=== PATIENT | female | born 1965 | race Caucasian/White ===

== ENCOUNTER 2020-11-07 16:32 | Emergency (ER) | payer OTHER ==
--- NOTE | 2020-11-07 17:07 | EDM.PDOC ---
ED HPI GENERAL MEDICAL PROBLEM - General Chief Complaint: Upper Extremity Injury/Pain Stated Complaint: FELL/RIGHT WRIST Time Seen by Provider: 11/07/20 16:51 Source of Information: Reports: Patient, Family, RN Notes Reviewed History Limitations: Reports: No Limitations - History of Present Illness INITIAL COMMENTS - FREE TEXT/NARRATIVE: 55-year-old female presents emergency department today with complaint of right wrist pain and left shoulder pain, she injured herself earlier today when she missed the last step of her camper fell all outstretched hand hit the picnic table and then she landed predominantly on her left shoulder. She can lift her shoulder but she has pain with about 90 degrees abduction and she has full range of motion of the right wrist as well but she does have a slight deformity and it is quite painful, no loss of consciousness denies any other injuries - Related Data Allergies Allergy/AdvReac Type Severity Reaction Status Date / Time acetaminophen [From Percocet] AdvReac Nausea Verified 11/07/20 16:49 oxycodone [From Percocet] AdvReac Nausea Verified 11/07/20 16:49 Home Meds: Home Meds FLUoxetine HCl [Fluoxetine] 40 mg PO DAILY 11/07/20 [History] LORazepam [Ativan] 0.5 mg PO ASDIRECTED PRN 11/07/20 [History] Levothyroxine [Synthroid] 100 mcg PO ACBREAKFAST 11/07/20 [History] Omeprazole Magnesium [Prilosec Otc] 20 mg PO DAILY 11/07/20 [History] busPIRone [Buspar] 10 mg PO DAILY 11/07/20 [History] Past Medical History HEENT History: Reports: Impaired Vision Gastrointestinal History: Reports: GERD Genitourinary History: Reports: [employer]al [employer] History: Reports: Psychiatric History: Reports: Anxiety Endocrine/Metabolic History: Reports: Obesity/BMI 30+ - Infectious Disease History Infectious Disease History: Reports: Chicken Pox, Shingles - Past Surgical History Head Surgeries/Procedures: Reports: None HEENT Surgical History: Reports: None GI Surgical History: Reports: Cholecystectomy Female Surgical History: Reports: Hysterectomy Endocrine Surgical History: Reports: None Musculoskeletal Surgical History: Reports: Knee Replacement Dermatological Surgical History: Reports: None Social & Family History - Tobacco Use Tobacco Use Status *Q: Never Tobacco User Second Hand Smoke Exposure: No - Caffeine Use Caffeine Use: Reports: Coffee - Alcohol Use Days Per Week of Alcohol Use: 2 Number of Drinks Per Day: 1 Total Drinks Per Week: 2 - Recreational Drug Use Recreational Drug Use: No Review of Systems - Review of Systems Review Of Systems: See Below Musculoskeletal: Reports: Shoulder Pain, Joint Pain Neurological: Reports: No Symptoms ED EXAM, GENERAL - Physical Exam Exam: See Below Free Text/Narrative:: Examination the right wrist I do appreciate a deformity however she has limited range of motion of the wrist full range of motion all digits radial pulses +2 t here is tenderness to palpation on the lateral aspect of the wrist. No tenderness at the elbow no tenderness at the shoulder on the right side examination of the left shoulder I do not appreciate any tenderness to palpation I do not appreciate any deformity she has full range of motion however she does get painful at about 90 degrees abduction Exam Limited By: No Limitations General Appearance: Alert, WD/WN, No Apparent Distress ED TRAUMA EXTREMITY PROCEDURES - Splinting Right Upper Extremity Splint Site: Radius Pre-Procedure NV Status: Normal Post-Procedure NV Status: Normal Splint Material: Fiberglass Splint Design: Gutter Applied & Form Fitted By: Provider, Nurse Provider Post-Splint Application NV Check: NV Status Normal, Good Position Complications: No Course - Vital Signs Last Recorded V/S: Last Vital Signs Temp 97.6 F 11/07/20 16:52 Pulse 95 11/07/20 16:52 Resp 16 11/07/20 16:52 BP 154/82 H 11/07/20 16:52 Pulse Ox 96 11/07/20 16:52 - Orders/Labs/Meds Orders: Active Orders 24 hr Category Date Time Status Shoulder Comp Lt [CR] Stat Exams 11/07/20 17:04 Taken Departure - Departure Time of Disposition: 18:45 Disposition: Home, Self-Care 01 Condition: Fair Clinical Impression: Distal radius fracture, right Qualifiers: Encounter type: initial encounter Fracture type: closed Fracture morphology: other fracture Qualified Code(s): S52.591A - Other fractures of lower end of right radius, initial encounter for closed fracture - Discharge Information Instructions: Radial Fracture Referrals: PCP,None [Primary Care Provider] - Forms: ED Department Discharge Additional Instructions: Use Tylenol or Motrin as needed for pain control, please remain in the splint until reevaluated by orthopedics they should call you on Tuesday however if you have not heard from them please contact our office by 10:00 call or return to the emergency department worsening of symptoms Sepsis Event Note (ED) - Evaluation Sepsis Screening Result: No Definite Risk - Focused Exam Vital Signs: Vital Signs Temp Pulse Resp BP Pulse Ox 11/07/20 16:52 97.6 F 95 16 154/82 H 96 11/07/20 16:48 97.6 F 95 16 154/82 H 96 - My Orders Last 24 Hours: My Active Orders 11/07/20 17:04 Shoulder Comp Lt [CR] Stat - Assessment/Plan Last 24 Hours: My Active Orders 11/07/20 17:04 Shoulder Comp Lt [CR] Stat Plan: Assessment Acuity = acute Site and laterality = impacted distal radius fracture right closed Etiology = fall on outstretched hand Manifestations = none Location of injury = Home Lab values = x-ray describes a fracture above Plan Consultation with orthopedics next week she is placed in a gutter splint and sling Tylenol Motrin as needed for pain control This note was dictated using [employer] voice recognition software please call with any questions on syntax or grammar.
--- NOTE | 2020-11-07 18:37 | CRLCR ---
For Patients: As a result of the Cures Act, medical imaging exams and procedure reports are released immediately into your electronic medical record. You may view this report before your referring provider. If you have questions, please contact your health care provider. Indication: Fall, pain Comparison: None available. Technique: AP, Lateral, and Oblique views right wrist were obtained Findings: There is an impacted distal radial fracture without significant angulation. No other displaced injuries are appreciated. The joint spaces are grossly preserved. There is moderate carpal soft tissue swelling. Impression: Impacted distal radial fracture with associated soft tissue swelling. No evidence of significant angulation. Dictated by Negrito Sims MD @ 11/07/2020 6:35:[address] Negrito Sims @ Nov 07 2020 6:35PM
--- NOTE | 2020-11-10 09:11 | CR ---
Shoulder Comp Lt CLINICAL HISTORY: Fall, pain FINDINGS: There is no acute fracture or dislocation in the left shoulder. There are some degenerative change and spurring in the AC joint. There is calcification near the bicipital groove. Impression: Calcific biceps tendinosis No fracture
== END 2020-11-07 18:50 | disposition home or self-care (01) ==
LOC: JP.ED 16:32
DX: S52.591A Other fractures of lower end of right radius, initial encounter for closed fracture (principal); K21.9 Gastro-esophageal reflux disease without esophagitis; E66.9 Obesity, unspecified; Z68.37 Body mass index [BMI] 37.0-37.9, adult; Z88.5 Allergy status to narcotic agent; Z88.6 Allergy status to analgesic agent; Z79.899 Other long term (current) drug therapy; W18.09XA Striking against other object with subsequent fall, initial encounter
CPT/HCPCS: 29125; 73030-26-LT; 73030-LT; 73110-RT; 99283-25

== ENCOUNTER 2021-09-03 07:40 | Day surgery (SDC) | payer OTHER ==
[2021-09-03] MEDS ORDERED: Dextrose 5%-Lactated Ringers 1,000 ML IV SCH (08:15)
[2021-09-03] MEDS ORDERED: fentaNYL 100 MCG/2 ML SDV ONE (09:12)
[2021-09-03] MEDS ORDERED: Propofol 200 MG/20 ML SDV ONE (09:12)
[2021-09-03] MEDS ORDERED: Midazolam 1 MG/ML 2 ML SDV ONE (09:12)
[2021-09-03] MEDS ORDERED: Pantoprazole 40 MG Vial IVPUSH ONE (09:36)
== END 2021-09-03 11:10 | disposition home or self-care (01) ==
LOC: JP.SDS 07:40
PROVIDERS: ATTEND Surgery
DX: K21.00 Gastro-esophageal reflux disease with esophagitis, without bleeding (principal); K44.9 Diaphragmatic hernia without obstruction or gangrene; K29.60 Other gastritis without bleeding; F41.9 Anxiety disorder, unspecified; F32.A Depression, unspecified
CPT/HCPCS: 87081; C9113; J2250; J2704; J3010; J7121

== ENCOUNTER 2024-09-06 08:47 | Day surgery (SDC) | payer OTHER ==
[2024-09-06] MEDS: Lactated Ringers 1,000 ML IV SCH (09:09)
[2024-09-06] MEDS ORDERED: Midazolam 1 MG/ML 2 ML SDV ONE (09:48)
[2024-09-06] MEDS ORDERED: fentaNYL 100 MCG/2 ML SDV ONE (09:48)
[2024-09-06] MEDS ORDERED: Propofol 200 MG/20 ML SDV ONE (09:48)
== END 2024-09-06 12:12 | disposition home or self-care (01) ==
LOC: JP.SDS 08:47
PROVIDERS: ATTEND Surgery
DX: Z12.11 Encounter for screening for malignant neoplasm of colon (principal)
CPT/HCPCS: 45378; J2250; J2704; J3010; J7120